=== PATIENT | female | born 1990 | race African-American/Black ===

== ENCOUNTER 2019-03-04 22:19 | Emergency (ER) | payer MEDICAID ==
[~2019-03-04] VITALS: Ht 157.5 cm; Wt 75.0 kg
[2019-03-04 22:37] VITALS: BP 116/86
[2019-03-05 02:42] LABS: CLARITY URINE TURBID (CLEAR); COLOR URINE YELLOW (YELLOW); KETONES URINE NEGATIVE (NEGATIVE); LEUKOCYTE ESTERASE URINE 2+ (NEGATIVE); NITRITE URINE POSITIVE (NEGATIVE); OCCULT BLOOD URINE 3+ (NEGATIVE); PH URINE 5.5 (4.5-8.0); PROTEIN URINE TRACE (NEGATIVE); UROBILINOGEN URINE 0.2 E.U./dL (0.2-1.0)
[2019-03-05] MEDS ORDERED: IBUPROFEN 600MG TABLET PO NR (03:00)
== END 2019-03-05 03:07 | disposition home or self-care (01) ==
LOC: ER 22:19
DX: N12 Tubulo-interstitial nephritis, not specified as acute or chronic (principal); M54.5 Low back pain
CPT/HCPCS: 81003; 81025; 87077; 87186; 99283